=== PATIENT | female | born 1985 | race Caucasian/White ===

== ENCOUNTER 2016-09-29 12:50 | Emergency (ER) | payer OTHER ==
--- NOTE | 2016-09-29 13:19 | ED CLINICAL REPORT ---
Clinical Report - Physicians/Mid Levels [facility] [address] [place] [address] 09/29/2016 12:49 Patient: HEMAL GIBSON Time Seen: 13:22 Sep 29 2016. Arrived- By private vehicle. Historian- patient. HISTORY OF PRESENT ILLNESS Chief Complaint: b/l arm paresthesias. The quality is noted to be "pain" and similar to prior episodes. 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 Additional history - Bilateral arm paresthesias over the last 4-6 months, intermittent symptoms, none now. He denies any injuries. Denies any associated neck pain denies any trauma. Denies any shortness of breath, chest pain. Unclear as to what makes such better/ worse. Has not been seen for this. Denies h/o known disc disease of neck. Patient denies an injury. REVIEW OF SYSTEMS No fever, sore throat, cough, chest pain or difficulty with urination. No hematuria. All systems otherwise negative, except as recorded above. PAST HISTORY Problems: Nephrolithiasis. Renal Colic. Hypertension. Tendonitis. Skin Rash. Dental Caries. Immunizations. LNMP - Last Normal Menstrual Period. Additional Surgeries: Adenoidectomy. Cholecystectomy. Sinus Surgery. Tonsillectomy. Medications: None. Allergies: Amoxicillin. SOCIAL HISTORY Smoker- current status unknown. History of drug use: marijuana. No alcohol use. ADDITIONAL NOTES The nursing notes have been reviewed. PHYSICAL EXAM Vital Signs: 09/29/2016 13:03 BP: 140/57. HR: 87. RR: 18. O2 saturation: 99%. Temp: 98.5 F. Pain level now: 7/10. Appearance: Alert. HEENT: Normal external inspection. Neck: No pain with movement of head/neck. No muscle spasm in the neck. No vertebral tenderness. No soft tissue tenderness or lymphadenopathy. CVS: Normal heart rate and rhythm. Heart sounds normal. Respiratory: No respiratory distress. Breath sounds normal. Skin: Skin warm. Normal skin color. Neuro: No motor deficit. No sensory deficit. PROGRESS AND PROCEDURES Course of Care: Chronic symptoms over the last 6 months, with no acute symptoms in the ER, no acute findings, negative exam, full range of motion of the neck, no associated other systemic symptoms, patient called with primary care provider, consider physical therapy or mri in the future out patient. Patient is stable. The patient's symptoms are unchanged. Patient/family counseled. Disposition: Discharged. CLINICAL IMPRESSION Acute right and left cervical radiculopathy. Paresthesia INSTRUCTIONS ([address] [place] [address] < 1 mi ). Follow-up: Follow up with your doctor in three days. Follow-up with: Davon Haskins MD, [facility], , [facility], [address] [place] [address] Follow up. Call for the next available appointment. (Electronically signed by Mayela Cope P.A.-C 09/29/2016 13:26)
--- NOTE | 2016-09-29 13:19 | ED CLINICAL REPORT ---
Clinical Report - Physicians/Mid Levels [facility] [address] [place] [address] 09/29/2016 12:49 Patient: HEMAL GIBSON Time Seen: 13:22 Sep 29 2016. Arrived- By private vehicle. Historian- patient. HISTORY OF PRESENT ILLNESS Chief Complaint: b/l arm paresthesias. The quality is noted to be "pain" and similar to prior episodes. 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 Additional history - Bilateral arm paresthesias over the last 4-6 months, intermittent symptoms, none now. He denies any injuries. Denies any associated neck pain denies any trauma. Denies any shortness of breath, chest pain. Unclear as to what makes such better/ worse. Has not been seen for this. Denies h/o known disc disease of neck. Patient denies an injury. REVIEW OF SYSTEMS No fever, sore throat, cough, chest pain or difficulty with urination. No hematuria. All systems otherwise negative, except as recorded above. PAST HISTORY Problems: Nephrolithiasis. Renal Colic. Hypertension. Tendonitis. Skin Rash. Dental Caries. Immunizations. LNMP - Last Normal Menstrual Period. Additional Surgeries: Adenoidectomy. Cholecystectomy. Sinus Surgery. Tonsillectomy. Medications: None. Allergies: Amoxicillin. SOCIAL HISTORY Smoker- current status unknown. History of drug use: marijuana. No alcohol use. ADDITIONAL NOTES The nursing notes have been reviewed. PHYSICAL EXAM Vital Signs: 09/29/2016 13:03 BP: 140/57. HR: 87. RR: 18. O2 saturation: 99%. Temp: 98.5 F. Pain level now: 7/10. Appearance: Alert. HEENT: Normal external inspection. Neck: No pain with movement of head/neck. No muscle spasm in the neck. No vertebral tenderness. No soft tissue tenderness or lymphadenopathy. CVS: Normal heart rate and rhythm. Heart sounds normal. Respiratory: No respiratory distress. Breath sounds normal. Skin: Skin warm. Normal skin color. Neuro: No motor deficit. No sensory deficit. PROGRESS AND PROCEDURES Course of Care: Chronic symptoms over the last 6 months, with no acute symptoms in the ER, no acute findings, negative exam, full range of motion of the neck, no associated other systemic symptoms, patient called with primary care provider, consider physical therapy or mri in the future out patient. Patient is stable. The patient's symptoms are unchanged. Patient/family counseled. Disposition: Discharged. CLINICAL IMPRESSION Acute right and left cervical radiculopathy. Paresthesia INSTRUCTIONS ([address] [place] [address] < 1 mi ). Follow-up: Follow up with your doctor in three days. Follow-up with: Davon Haskins MD, [facility], , [facility], [address] [place] [address] Follow up. Call for the next available appointment. (Electronically signed by Mayela Cope P.A.-C 09/29/2016 13:26)
--- NOTE | 2016-09-29 13:19 | ED NURSING NOTES ---
Clinical Report - Nurses [facility] [place] [address] 09/29/2016 12:49 Patient: HEMAL GIBSON TRIAGE Triage time 13:03. Acuity: LEVEL 4. Chief Complaint: RIGHT UPPER EXTREMITY NUMBNESS. LEFT UPPER EXTREMITY NUMBNESS. Alert. No acute distress. HAILEY COMA SCORE: [place] Coma Scale: 15- eyes open spontaneously (4); best verbal response- oriented x 4 (5); best motor response- obeys commands (6). --13:09 Amaya Ortez R.N. 13:03 09/29/16. BP: 140/57. HR: 87. RR: 18. O2 saturation: 99%. Temp: 98.5 F (oral). Pain level now: 03/15. --13:09 Amaya Ortez R.N. Weight: 117.9 kg stated. Height/Length: 66 inches Per Patient. BMI: 42. --13:05 Amaya Ortez R.N. Medications None. --13:04 Amaya Ortez R.N. Medication/allergy information source: the patient. --13:09 Amaya Ortez R.N. Allergies Amoxicillin. --13:04 Amaya Ortez R.N. History Arrived by private vehicle. Historian: patient. Unaccompanied. Primary physician (none). No injury occurred. This occurred (about 6 months). ( intermittent). PAST MEDICAL HX: Last normal menstrual period- has IUD. SOCIAL HX: Heavy tobacco smoker- 1 pack per day. History of drug use: marijuana. No alcohol use. FALL RISK ASSESSMENT: Fall risk assessment completed. No fall risk identified. FUNCTIONAL ASSESSMENT: Functional assessment: no impairments noted. LEARNING NEEDS ASSESSMENT: The learning needs assessment revealed no barriers. --13:09 Amaya Ortez R.N. PROBLEMS: Nephrolithiasis. Renal Colic. Hypertension. Tendonitis. Skin Rash. Dental Caries. Immunizations. LNMP - Last Normal Menstrual Period. --13:05 Amaya Ortez R.N. ADDITIONAL SURGERIES: Adenoidectomy. Cholecystectomy. Sinus Surgery. Tonsillectomy. --13:05 Amaya Ortez R.N. Assessment GENERAL / NEURO / PSYCH: Alert. Oriented X 4. Appears in no acute distress. Patient appears calm and cooperative. RESPIRATORY: Respirations not labored. SKIN: Skin is warm and dry. --13:09 Amaya Ortez R.N. Interventions ID and allergy band on patient. To treatment room. --13:09 Amaya Ortez R.N. PHYSICAL ASSESSMENT 13:15 09/29/16. Ambulatory to room. GENERAL / NEURO / PSYCH: Oriented X 4. Alert. Appears in no acute distress. SKIN: Skin is warm and dry. --13:15 Amaya Ortez R.N. DISPOSITION / DISCHARGE 13:42 09/29/16. Condition at departure: improved. The goals identified in the patient's plan of care were met. No learning barriers present. Discharge instructions provided and reviewed with the patient. Reviewed warnings. Reviewed medication(s). Treatments reviewed. Patient verbalized understanding. Written instructions provided in Italian. The patient was discharged by the physician behavioral modification assistant. She was discharged home and accompanied by family. She left the Emergency Department ambulatory and via private vehicle. Family member driving. FALL RISK ASSESSMENT: Fall risk assessment completed. No fall risk identified. --13:42 Chuy Hooker R.N. 13:42 09/29/16. BP: 126/70. HR: 80. RR: 14. O2 saturation: 99% on room air. --13:42 Chuy Hooker R.N. 13:42 09/29/16. Departure time: 13:42. --13:42 Chuy Hooker R.N. Locked/Released at 09/29/2016 15:46 by Chuy Hooker R.N.
--- NOTE | 2016-09-29 13:19 | ED NURSING NOTES ---
Clinical Report - Nurses [facility] [place] [address] 09/29/2016 12:49 Patient: HEMAL GIBSON TRIAGE Triage time 13:03. Acuity: LEVEL 4. Chief Complaint: RIGHT UPPER EXTREMITY NUMBNESS. LEFT UPPER EXTREMITY NUMBNESS. Alert. No acute distress. HAILEY COMA SCORE: [place] Coma Scale: 15- eyes open spontaneously (4); best verbal response- oriented x 4 (5); best motor response- obeys commands (6). --13:09 Amaya Ortez R.N. 13:03 09/29/16. BP: 140/57. HR: 87. RR: 18. O2 saturation: 99%. Temp: 98.5 F (oral). Pain level now: 03/15. --13:09 Amaya Ortez R.N. Weight: 117.9 kg stated. Height/Length: 66 inches Per Patient. BMI: 42. --13:05 Amaya Ortez R.N. Medications None. --13:04 Amaya Ortez R.N. Medication/allergy information source: the patient. --13:09 Amaya Ortez R.N. Allergies Amoxicillin. --13:04 Amaya Ortez R.N. History Arrived by private vehicle. Historian: patient. Unaccompanied. Primary physician (none). No injury occurred. This occurred (about 6 months). ( intermittent). PAST MEDICAL HX: Last normal menstrual period- has IUD. SOCIAL HX: Heavy tobacco smoker- 1 pack per day. History of drug use: marijuana. No alcohol use. FALL RISK ASSESSMENT: Fall risk assessment completed. No fall risk identified. FUNCTIONAL ASSESSMENT: Functional assessment: no impairments noted. LEARNING NEEDS ASSESSMENT: The learning needs assessment revealed no barriers. --13:09 Amaya Ortez R.N. PROBLEMS: Nephrolithiasis. Renal Colic. Hypertension. Tendonitis. Skin Rash. Dental Caries. Immunizations. LNMP - Last Normal Menstrual Period. --13:05 Amaya Ortez R.N. ADDITIONAL SURGERIES: Adenoidectomy. Cholecystectomy. Sinus Surgery. Tonsillectomy. --13:05 Amaya Ortez R.N. Assessment GENERAL / NEURO / PSYCH: Alert. Oriented X 4. Appears in no acute distress. Patient appears calm and cooperative. RESPIRATORY: Respirations not labored. SKIN: Skin is warm and dry. --13:09 Amaya Ortez R.N. Interventions ID and allergy band on patient. To treatment room. --13:09 Amaya Ortez R.N. PHYSICAL ASSESSMENT 13:15 09/29/16. Ambulatory to room. GENERAL / NEURO / PSYCH: Oriented X 4. Alert. Appears in no acute distress. SKIN: Skin is warm and dry. --13:15 Amaya Ortez R.N. DISPOSITION / DISCHARGE 13:42 09/29/16. Condition at departure: improved. The goals identified in the patient's plan of care were met. No learning barriers present. Discharge instructions provided and reviewed with the patient. Reviewed warnings. Reviewed medication(s). Treatments reviewed. Patient verbalized understanding. Written instructions provided in Estonian. The patient was discharged by the physician delinquent tax collection assistant. She was discharged home and accompanied by family. She left the Emergency Department ambulatory and via private vehicle. Family member driving. FALL RISK ASSESSMENT: Fall risk assessment completed. No fall risk identified. --13:42 Chuy Hooker R.N. 13:42 09/29/16. BP: 126/70. HR: 80. RR: 14. O2 saturation: 99% on room air. --13:42 Chuy Hooker R.N. 13:42 09/29/16. Departure time: 13:42. --13:42 Chuy Hooker R.N. Locked/Released at 09/29/2016 15:46 by Chuy Hooker R.N.
--- NOTE | 2016-09-29 15:46 | ED DISCHARGE INSTRUCTIONS ---
Patient: HEMAL GIBSON General Instructions [facility] VisitID: [id number] [address] [place] [address] 31y, F Registration Date/Time: 09/29/2016 Acute right and left cervical radiculopathy. Paresthesia INSTRUCTIONS ([address] [place] [address] < 1 mi ). Follow-up: Follow up with your doctor in three days. Follow-up with: Davon Haskins MD, [facility], , [facility], [address] [place] [address] Follow up. Call for the next available appointment. ADDITIONAL INFORMATION Pinched Nerve, Neck [Cervical Radiculopathy] A pinched nerve in the neck (also called "Cervical Radiculopathy") is caused by irritation or pressure on the nerve that goes from the spinal cord to the arm. This may be caused by a bulging spinal disk (a "spinal disk" is the cushion between each spinal bone) or narrowing of the spinal joint due to arthritis. This can cause numbness, tingling, deep aching or electrical shooting pain from the side of the neck all the way down to the fingers on one side. A pinched nerve may begin after a sudden turning/bending force (such as in a car accident) or after a simple awkward movement. In either case, muscle spasm is commonly present and contributes to the pain. Home Care: 1) Rest and relax the muscles. Use a comfortable pillow that supports the head and keeps the spine in a neutral position. The position of the head should not be tilted forward or backward. A rolled up towel may help for a custom fit. 2) Some persons find relief with heat (hot shower, hot bath or heating pad) and massage, while others prefer cold packs (crushed or cubed ice in a plastic bag, wrapped in a towel) . Try both and use the method that feels best for 20 minutes several times a day. 3) You may use acetaminophen (Tylenol) or ibuprofen (Motrin, Advil) to control pain, unless another medicine was prescribed. [ NOTE : If you have chronic liver or kidney disease or ever had a stomach ulcer or GI bleeding, talk with your doctor before using these medicines.] Follow Up with your physician or this facility if your symptoms do not show signs of improvement after one week. Further testing may be needed. [NOTE: If x-rays were taken, they will be reviewed by a radiologist. You will be notified of any new findings that may affect your care.] Get Prompt Medical Attention if any of the following occur: -- Pain becomes worse and not controlled by prescribed pain medicine -- Weakness in the arm -- Increasing numbness in the arm -- Trouble breathing or swallowing Paraesthesias Paraesthesia refers to a burning or prickling sensation that is sometimes felt in the hands, arms, legs or feet. It can also occur in other parts of the body. It can also feel like tingling or numbness, skin crawling or itching.The sensation is usually painless. Most people have experienced pins and needles. This feeling happens when legs have been crossed for too long and pressure is placed on a nerve. This is a temporary paraesthesia. It quickly goes away once the pressure is relieved. There are many possible causes for chronic paraesthesias. These include such disorders as stroke, herniated disk (pressing on a nerve), trapped nerve in the shoulder, elbow or wrist (such as carpal tunnel syndrome), vitamin deficiencies or even certain medicines. Laboratory tests are needed to make an accurate diagnosis. These tests may include blood tests, X-ray, CT (computerized tomography) scan or a muscle test (electromyography).Depending on the cause, treatment may include physical therapy. Home Care: Do not make any changes to your medicines without advice from your doctor. If vitamins have been prescribed, remember to take them daily at the recommended dose. Because of a decrease in feeling, a numb hand or foot may be more prone to injury. Take care to protect these areas from cuts, bumps, bruises, spicer or other injury. Keep your nails trimmed and wash your hands and feet often. Wear shoes that fit well to avoid pressure points, blisters and ulcers. Look at your hands and feet carefully (including the soles of your feet and between your toes) at least once a week and notify your doctor of any open wounds or signs of infection. Follow Up with your doctor or as advised by our staff. You may need further testing to determine the exact cause of your paraesthesia. [NOTE: If blood tests, X-ray, CT scan or electromyography were done, specialists will review them. You will be notified of any new findings that may affect your care.] Get Prompt Medical Attention if any of the following occur: Numbness or weakness of the face, one arm or one leg Slurred speech, confusion, trouble speaking, walking or seeing Severe headache, fainting spell, dizziness or seizure Chest, arm, neck or upper back pain Loss of bladder or bowel control Open wound with redness, swelling or pus You have been given the following additional information: Radiculopathy, Cervical Paraesthesias (Electronically signed by Mayela Cope P.A.-C 09/29/2016 13:26)
--- NOTE | 2016-09-29 15:46 | ED DISCHARGE INSTRUCTIONS ---
Patient: HEMAL GIBSON General Instructions [facility] VisitID: [id number] [address] [place] [place] [address] 31y, F Registration Date/Time: 09/29/2016 Acute right and left cervical radiculopathy. Paresthesia INSTRUCTIONS ([address] [place] [address] < 1 mi ). Follow-up: Follow up with your doctor in three days. Follow-up with: Davon Haskins MD, [facility], , [facility], [address] [place] [address] Follow up. Call for the next available appointment. ADDITIONAL INFORMATION Pinched Nerve, Neck [Cervical Radiculopathy] A pinched nerve in the neck (also called "Cervical Radiculopathy") is caused by irritation or pressure on the nerve that goes from the spinal cord to the arm. This may be caused by a bulging spinal disk (a "spinal disk" is the cushion between each spinal bone) or narrowing of the spinal joint due to arthritis. This can cause numbness, tingling, deep aching or electrical shooting pain from the side of the neck all the way down to the fingers on one side. A pinched nerve may begin after a sudden turning/bending force (such as in a car accident) or after a simple awkward movement. In either case, muscle spasm is commonly present and contributes to the pain. Home Care: 1) Rest and relax the muscles. Use a comfortable pillow that supports the head and keeps the spine in a neutral position. The position of the head should not be tilted forward or backward. A rolled up towel may help for a custom fit. 2) Some persons find relief with heat (hot shower, hot bath or heating pad) and massage, while others prefer cold packs (crushed or cubed ice in a plastic bag, wrapped in a towel) . Try both and use the method that feels best for 20 minutes several times a day. 3) You may use acetaminophen (Tylenol) or ibuprofen (Motrin, Advil) to control pain, unless another medicine was prescribed. [ NOTE : If you have chronic liver or kidney disease or ever had a stomach ulcer or GI bleeding, talk with your doctor before using these medicines.] Follow Up with your physician or this facility if your symptoms do not show signs of improvement after one week. Further testing may be needed. [NOTE: If x-rays were taken, they will be reviewed by a radiologist. You will be notified of any new findings that may affect your care.] Get Prompt Medical Attention if any of the following occur: -- Pain becomes worse and not controlled by prescribed pain medicine -- Weakness in the arm -- Increasing numbness in the arm -- Trouble breathing or swallowing Paraesthesias Paraesthesia refers to a burning or prickling sensation that is sometimes felt in the hands, arms, legs or feet. It can also occur in other parts of the body. It can also feel like tingling or numbness, skin crawling or itching.The sensation is usually painless. Most people have experienced pins and needles. This feeling happens when legs have been crossed for too long and pressure is placed on a nerve. This is a temporary paraesthesia. It quickly goes away once the pressure is relieved. There are many possible causes for chronic paraesthesias. These include such disorders as stroke, herniated disk (pressing on a nerve), trapped nerve in the shoulder, elbow or wrist (such as carpal tunnel syndrome), vitamin deficiencies or even certain medicines. Laboratory tests are needed to make an accurate diagnosis. These tests may include blood tests, X-ray, CT (computerized tomography) scan or a muscle test (electromyography).Depending on the cause, treatment may include physical therapy. Home Care: Do not make any changes to your medicines without advice from your doctor. If vitamins have been prescribed, remember to take them daily at the recommended dose. Because of a decrease in feeling, a numb hand or foot may be more prone to injury. Take care to protect these areas from cuts, bumps, bruises, spicer or other injury. Keep your nails trimmed and wash your hands and feet often. Wear shoes that fit well to avoid pressure points, blisters and ulcers. Look at your hands and feet carefully (including the soles of your feet and between your toes) at least once a week and notify your doctor of any open wounds or signs of infection. Follow Up with your doctor or as advised by our staff. You may need further testing to determine the exact cause of your paraesthesia. [NOTE: If blood tests, X-ray, CT scan or electromyography were done, specialists will review them. You will be notified of any new findings that may affect your care.] Get Prompt Medical Attention if any of the following occur: Numbness or weakness of the face, one arm or one leg Slurred speech, confusion, trouble speaking, walking or seeing Severe headache, fainting spell, dizziness or seizure Chest, arm, neck or upper back pain Loss of bladder or bowel control Open wound with redness, swelling or pus You have been given the following additional information: Radiculopathy, Cervical Paraesthesias (Electronically signed by Mayela Cope P.A.-C 09/29/2016 13:26)
--- NOTE | 2016-09-29 15:47 | ED MAR SUMMARY ---
..... Medication Administration Record [facility] [address] [place] [id number] Patient: HEMAL GIBSON Elif Visit ID: [id number] 31y, F Weight: 117.9 kg Height/Length: 66 in BMI: 42 ALLERGIES: Amoxicillin
--- NOTE | 2016-09-29 15:47 | ED MED RECONCILIATION SUMMARY ---
Patient: HEMAL GIBSON Medication Reconciliation Report [facility] VisitID: [id number] [address] [place] [place] [address] 31y, F Registration Date/Time: 09/29/2016 Weight: 117.9 kg Height/Length: 66 in. BMI: 42.0 ALLERGIES: Amoxicillin The patient's Home Medications are listed below: NONE. The source(s) of the original Home Medication information: patient The following Medications were given to the patient in the Emergency Department: None. The following Medications were prescribed to the patient: None.
--- NOTE | 2016-09-29 15:47 | ED MAR SUMMARY ---
..... Medication Administration Record [facility] [address] [place] [id number] Patient: HEMAL GIBSON Elif Visit ID: [id number] 31y, F Weight: 117.9 kg Height/Length: 66 in BMI: 42 ALLERGIES: Amoxicillin
--- NOTE | 2016-09-29 15:47 | ED MED RECONCILIATION SUMMARY ---
Patient: HEMAL GIBSON Medication Reconciliation Report [facility] VisitID: [id number] [address] [place] [address] 31y, F Registration Date/Time: 09/29/2016 Weight: 117.9 kg Height/Length: 66 in. BMI: 42.0 ALLERGIES: Amoxicillin The patient's Home Medications are listed below: NONE. The source(s) of the original Home Medication information: patient The following Medications were given to the patient in the Emergency Department: None. The following Medications were prescribed to the patient: None.
== END 2016-09-29 13:42 | disposition home or self-care (01) ==
LOC: ED SRH 12:50
DX: M54.12 Radiculopathy, cervical region (principal); R20.9 Unspecified disturbances of skin sensation; I10 Essential (primary) hypertension; F17.200 Nicotine dependence, unspecified, uncomplicated; Z88.0 Allergy status to penicillin

== ENCOUNTER 2016-10-19 03:10 | Emergency (ER) | payer OTHER ==
--- NOTE | 2016-10-19 04:15 | ED ORDER SUMMARY ---
..... Patient: HEMAL GIBSON OrderSheet [facility] VisitID: [id number] [address] [place] [address] 31y, F Registration Date/Time: 10/19/2016 ORDER SHEET Weight: 99.7 kg (stated) Allergies: Amoxicillin GENERAL ORDERS: Sinuses less than 3V (Briones. ) Urgent (03:42 10/19/2016 Salome CORNEJO) (4:00 RFay) MEDICATION ORDERS: IV FLUIDS: ORDER SHEET NOTES: [Electronically signed by Korey Ledbetter MD (19:44 10/20/2016)] [Electronically signed by Sarah Carpenter (20:57 10/21/2016)] [Electronically locked/signed by Sarah Carpenter (20:57 10/21/2016)]
--- NOTE | 2016-10-19 04:15 | ED CLINICAL REPORT ---
Clinical Report - Physicians/Mid Levels [facility] [address] [place] [address] 10/19/2016 3:11 Patient: HEMAL GIBSON Time Seen: 03:32 Oct 19 2016. Arrived- By private vehicle. Historian- patient. CPT: ER phys charges level 3 (#[id number]). HISTORY OF PRESENT ILLNESS Chief Complaint: NECK PAIN LOPEZ also for 2 days. Modifying factors- worsened by rotation of the head. It is described as being moderate in degree and in the area of the cervical spine and right side of the cervical spine. The quality is noted to be sharp, aching, "pain" and similar to prior episodes. 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 ( Pt came in with a headache and neck pain. Neck pain is on the right side behind the ear. Pt took headache meds with no relieve. Pt has pain on lateral movement to the left of the neck. Pt denies any vision changes. Headache is a dull ache.). No history of recent trauma. and it is still present. No bladder dysfunction, bowel dysfunction, sensory loss or motor loss. Additional history - LOPEZ present for 2 days as low grade but constant. Not the worst LOPEZ she has ever had. Patient denies an injury. No other injury. Similar symptoms previously: Many times. Recent medical care: Not recently seen/assessed. REVIEW OF SYSTEMS No fever, chills, sore throat, cough or difficulty breathing. No chest pain, skin rash, abdominal pain, nausea or vomiting. No diarrhea, black stools, difficulty with urination, urinary frequency or hematuria. Recent cold for a week and now sinus congestion. Pt has hx of sinusitis. Pt also says she has been referred to neurology to evaluate the cervical radiculopathy she has had for 6 months. All systems otherwise negative, except as recorded above. PAST HISTORY Paresthesia. Cervical Radiculopathy. Nephrolithiasis. Renal Colic. Hypertension. Tendonitis. Skin Rash. Dental Caries. Medications: None. Allergies: Amoxicillin. SOCIAL HISTORY Heavy tobacco smoker (cigarette)- less than 1 pack per day. History of occasional drug use: marijuana. No alcohol use. ADDITIONAL NOTES The nursing notes have been reviewed. PHYSICAL EXAM Vital Signs: 10/19/2016 03:14 BP: 139/84. HR: 92. RR: 18. O2 saturation: 99%. Temp: 98.4 F. Appearance: Alert. No acute distress. HEENT: Normal external inspection. ENT: Pharynx normal. (right temporal , scalp tender to palpation. Right maxillary and frontal sinus tender to percussion.). Neck: Moderate soft tissue tenderness in the right lower neck area. CVS: Normal heart rate and rhythm. Heart sounds normal. Pulses normal. Respiratory: No respiratory distress. Breath sounds normal. Abdomen: Soft and nontender. Back: Normal inspection. No tenderness. Painless ROM. Skin: Skin warm. Normal skin color. No rash. Extremities: Extremities exhibit normal ROM. Extremities nontender. Neuro: Oriented X 3. Mood/affect normal. No motor deficit. No sensory deficit. Reflexes normal. LABS, X-RAYS, AND EKG Note - Tests: (Briones sinus:Bilateral maxillary sinus dz.). PROGRESS AND PROCEDURES Course of Care: Pt pain a combination of musculoskeletal and sinus sources. Pt has musculoskeletal source for LOPEZ and neck pain. Pt has musculoskeletal source for LOPEZ and neck pain. Pt has musculoskeletal source for LOPEZ and neck pain. Patient/family counseled. Disposition: Discharged. Condition: stable. CLINICAL IMPRESSION Episodic, poorly controlled tension headache. Acute and recurrent maxillary sinusitis Chronic neck pain. INSTRUCTIONS Apply moist heat for 15-20 minutes three times a day for five days until better. Limit lifting. No strenuous activity. (decongestant). Prescription Medications: Ibuprofen 600mg tablets: take 1 tablet orally every 8 hours as needed for pain. Dispense thirty (30). No refills. Soma 350 mg: Take 1 orally every 6 hours as needed for muscle spasm. Dispense twenty (20). No refills. Substitution is permissible. Hydrocodone/APAP 5mg/325mg: take 1 to 2 orally every 6 hours as needed for pain. Dispense fifteen (15). No refills. Zithromax 250 mg tablets: take 2 orally today, followed by 1 daily for the next 4 days. No refills. Substitution is permissible. Follow-up: Follow up with your doctor in three days if not better. Call for an appointment. Understanding of the discharge instructions verbalized by patient. (Electronically signed by Korey Ledbetter MD 10/20/2016 19:44)
--- NOTE | 2016-10-19 04:15 | ED NURSING NOTES ---
Clinical Report - Nurses [facility] [address] [place] [address] 10/19/2016 3:11 Patient: HEMAL GIBSON TRIAGE Triage time 03:14. Acuity: LEVEL 4. Chief Complaint: NECK PAIN. --03:19 Dioni Wilkes R.N. 03:14 10/19/16. BP: 139/84. HR: 92. RR: 18. O2 saturation: 99%. Temp: 98.4 F. Pain level now 02/13. --03:19 Dioni Wilkes R.N. Weight: 99.7 kg stated. Height/Length: 66 inches Per Patient. BMI: 35.5. --03:17 Dioni Wilkes R.N. Medications None. --03:17 Dioni Wilkes R.N. Medication/allergy information source: the patient. --03:19 Dioni Wilkes R.N. Allergies Amoxicillin. --03:17 Dioni Wilkes R.N. History Onset. (2 days ago). ( Pt came in with a headache and neck pain. Neck pain is on the right side behind the ear. Pt took headache meds with no relieve. Pt has pain on lateral movement to the left of the neck. Pt denies any vision changes. Headache is a dull ache.). No history of recent trauma. 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 PAST MEDICAL HX: Immunizations: up-to-date. SOCIAL HX: Current every day heavy tobacco smoker (cigarette)- 1 pack per day. History of occasional drug use: marijuana. Recently used drugs days ago. No alcohol use. --03:19 Dioni Wilkes R.N. PROBLEMS: Paresthesia. Cervical Radiculopathy. Nephrolithiasis. Renal Colic. Hypertension. Tendonitis. Skin Rash. Dental Caries. Immunizations. LNMP - Last Normal Menstrual Period. --03:18 Dioni Wilkes R.N. Interventions ID band on patient. To treatment room. --03:19 Dioni Wilkes R.N. PHYSICAL ASSESSMENT ( Pt is having a dull headache 6/10 pain with no vision changes. No other complaints with the headache or neck pain. Pt denies any stiffness of the neck and only limited rom on lateral left movement of the neck.). GENERAL / NEURO / PSYCH: Alert. Oriented X 4. Appears in no acute distress. RESPIRATORY: Respirations not labored. Chest nontender. Breath sounds within normal limits. CVS: Normal heart rate and rhythm. Capillary refill less than 2 seconds. GI / : Abdomen soft and nontender. Bowel sounds within normal limits. EXTREMITIES: Sensation intact in extremities. ROM of extremities within normal limits. BACK: Normal inspection of the neck and back. Limited ROM of the neck in the cervical spine (decreased left lateral bending). No neck or back tenderness. --03:21 Dioni Wilkes R.N. NURSING PROGRESS NOTES Two patient identifiers checked. Call light placed in reach. Side rails up x 1. Bed placed in lowest position. --03:21 Dioni Wilkes R.N. DISPOSITION / DISCHARGE 04:21 10/19/16. Condition at departure: stable. No learning barriers present. Discharge instructions provided and reviewed with the patient. Reviewed medication(s) side effects, precautions, dosing and course information. Prescription(s) given to the patient. Reviewed need for increased fluid intake. Patient verbalized understanding. Written instructions provided in Belgian. ( Follow up with your PCP in three days if symptoms have not improved.). The patient was discharged by the physician. She was discharged home and accompanied by food and beverage intern. She left the Emergency Department ambulatory and via private vehicle. Planning Associate driving. --04:21 Sarah Carpenter 04:20 10/19/16. BP: 136/68. HR: 91. RR: 20. O2 saturation: 98% on room air. Temp: 98.4 F (oral). Pain level now: 02/13. --04:21 Sarah Carpenter. Locked/Released at 10/21/2016 20:57 by Sarah Carpenter,
--- NOTE | 2016-10-19 04:15 | ED ORDER SUMMARY ---
..... Patient: HEMAL GIBSON OrderSheet [facility] VisitID: [id number] [address] [place] [address] 31y, F Registration Date/Time: 10/19/2016 ORDER SHEET Weight: 99.7 kg (stated) Allergies: Amoxicillin GENERAL ORDERS: Sinuses less than 3V (Briones. ) Urgent (03:42 10/19/2016 Salome CORNEJO) (4:00 RFay) MEDICATION ORDERS: IV FLUIDS: ORDER SHEET NOTES: [Electronically signed by Korey Ledbetter MD (19:44 10/20/2016)] [Electronically signed by Sarah Carpenter (20:57 10/21/2016)] [Electronically locked/signed by Sarah Carpenter (20:57 10/21/2016)]
--- NOTE | 2016-10-19 04:15 | ED NURSING NOTES ---
Clinical Report - Nurses [facility] [address] [place] [address] 10/19/2016 3:11 Patient: HEMAL GIBSON TRIAGE Triage time 03:14. Acuity: LEVEL 4. Chief Complaint: NECK PAIN. --03:19 Dioni Wilkes R.N. 03:14 10/19/16. BP: 139/84. HR: 92. RR: 18. O2 saturation: 99%. Temp: 98.4 F. Pain level now 02/13. --03:19 Dioni Wilkes R.N. Weight: 99.7 kg stated. Height/Length: 66 inches Per Patient. BMI: 35.5. --03:17 Dioni Wilkes R.N. Medications None. --03:17 Dioni Wilkes R.N. Medication/allergy information source: the patient. --03:19 Dioni Wilkes R.N. Allergies Amoxicillin. --03:17 Dioni Wilkes R.N. History Onset. (2 days ago). ( Pt came in with a headache and neck pain. Neck pain is on the right side behind the ear. Pt took headache meds with no relieve. Pt has pain on lateral movement to the left of the neck. Pt denies any vision changes. Headache is a dull ache.). No history of recent trauma. 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 PAST MEDICAL HX: Immunizations: up-to-date. SOCIAL HX: Current every day heavy tobacco smoker (cigarette)- 1 pack per day. History of occasional drug use: marijuana. Recently used drugs days ago. No alcohol use. --03:19 Dioni Wilkes R.N. PROBLEMS: Paresthesia. Cervical Radiculopathy. Nephrolithiasis. Renal Colic. Hypertension. Tendonitis. Skin Rash. Dental Caries. Immunizations. LNMP - Last Normal Menstrual Period. --03:18 Dioni Wilkes R.N. Interventions ID band on patient. To treatment room. --03:19 Dioni Wilkes R.N. PHYSICAL ASSESSMENT ( Pt is having a dull headache 6/10 pain with no vision changes. No other complaints with the headache or neck pain. Pt denies any stiffness of the neck and only limited rom on lateral left movement of the neck.). GENERAL / NEURO / PSYCH: Alert. Oriented X 4. Appears in no acute distress. RESPIRATORY: Respirations not labored. Chest nontender. Breath sounds within normal limits. CVS: Normal heart rate and rhythm. Capillary refill less than 2 seconds. GI / : Abdomen soft and nontender. Bowel sounds within normal limits. EXTREMITIES: Sensation intact in extremities. ROM of extremities within normal limits. BACK: Normal inspection of the neck and back. Limited ROM of the neck in the cervical spine (decreased left lateral bending). No neck or back tenderness. --03:21 Dioni Wilkes R.N. NURSING PROGRESS NOTES Two patient identifiers checked. Call light placed in reach. Side rails up x 1. Bed placed in lowest position. --03:21 Dioni Wilkes R.N. DISPOSITION / DISCHARGE 04:21 10/19/16. Condition at departure: stable. No learning barriers present. Discharge instructions provided and reviewed with the patient. Reviewed medication(s) side effects, precautions, dosing and course information. Prescription(s) given to the patient. Reviewed need for increased fluid intake. Patient verbalized understanding. Written instructions provided in Maldivian. ( Follow up with your PCP in three days if symptoms have not improved.). The patient was discharged by the physician. She was discharged home and accompanied by technical services consultant. She left the Emergency Department ambulatory and via private vehicle. Internal Combustion Engine Inspector driving. --04:21 Sarah Carpenter 04:20 10/19/16. BP: 136/68. HR: 91. RR: 20. O2 saturation: 98% on room air. Temp: 98.4 F (oral). Pain level now: 02/13. --04:21 Sarah Carpenter. Locked/Released at 10/21/2016 20:57 by Sarah Carpenter,
--- NOTE | 2016-10-19 04:15 | ED CLINICAL REPORT ---
Clinical Report - Physicians/Mid Levels [facility] [address] [place] [address] 10/19/2016 3:11 Patient: HEMAL GIBSON Time Seen: 03:32 Oct 19 2016. Arrived- By private vehicle. Historian- patient. CPT: ER phys charges level 3 (#[id number]). HISTORY OF PRESENT ILLNESS Chief Complaint: NECK PAIN LOPEZ also for 2 days. Modifying factors- worsened by rotation of the head. It is described as being moderate in degree and in the area of the cervical spine and right side of the cervical spine. The quality is noted to be sharp, aching, "pain" and similar to prior episodes. 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 ( Pt came in with a headache and neck pain. Neck pain is on the right side behind the ear. Pt took headache meds with no relieve. Pt has pain on lateral movement to the left of the neck. Pt denies any vision changes. Headache is a dull ache.). No history of recent trauma. and it is still present. No bladder dysfunction, bowel dysfunction, sensory loss or motor loss. Additional history - LOPEZ present for 2 days as low grade but constant. Not the worst LOPEZ she has ever had. Patient denies an injury. No other injury. Similar symptoms previously: Many times. Recent medical care: Not recently seen/assessed. REVIEW OF SYSTEMS No fever, chills, sore throat, cough or difficulty breathing. No chest pain, skin rash, abdominal pain, nausea or vomiting. No diarrhea, black stools, difficulty with urination, urinary frequency or hematuria. Recent cold for a week and now sinus congestion. Pt has hx of sinusitis. Pt also says she has been referred to neurology to evaluate the cervical radiculopathy she has had for 6 months. All systems otherwise negative, except as recorded above. PAST HISTORY Paresthesia. Cervical Radiculopathy. Nephrolithiasis. Renal Colic. Hypertension. Tendonitis. Skin Rash. Dental Caries. Medications: None. Allergies: Amoxicillin. SOCIAL HISTORY Heavy tobacco smoker (cigarette)- less than 1 pack per day. History of occasional drug use: marijuana. No alcohol use. ADDITIONAL NOTES The nursing notes have been reviewed. PHYSICAL EXAM Vital Signs: 10/19/2016 03:14 BP: 139/84. HR: 92. RR: 18. O2 saturation: 99%. Temp: 98.4 F. Appearance: Alert. No acute distress. HEENT: Normal external inspection. ENT: Pharynx normal. (right temporal , scalp tender to palpation. Right maxillary and frontal sinus tender to percussion.). Neck: Moderate soft tissue tenderness in the right lower neck area. CVS: Normal heart rate and rhythm. Heart sounds normal. Pulses normal. Respiratory: No respiratory distress. Breath sounds normal. Abdomen: Soft and nontender. Back: Normal inspection. No tenderness. Painless ROM. Skin: Skin warm. Normal skin color. No rash. Extremities: Extremities exhibit normal ROM. Extremities nontender. Neuro: Oriented X 3. Mood/affect normal. No motor deficit. No sensory deficit. Reflexes normal. LABS, X-RAYS, AND EKG Note - Tests: (Briones sinus:Bilateral maxillary sinus dz.). PROGRESS AND PROCEDURES Course of Care: Pt pain a combination of musculoskeletal and sinus sources. Pt has musculoskeletal source for LOPEZ and neck pain. Pt has musculoskeletal source for LOPEZ and neck pain. Pt has musculoskeletal source for LOPEZ and neck pain. Patient/family counseled. Disposition: Discharged. Condition: stable. CLINICAL IMPRESSION Episodic, poorly controlled tension headache. Acute and recurrent maxillary sinusitis Chronic neck pain. INSTRUCTIONS Apply moist heat for 15-20 minutes three times a day for five days until better. Limit lifting. No strenuous activity. (decongestant). Prescription Medications: Ibuprofen 600mg tablets: take 1 tablet orally every 8 hours as needed for pain. Dispense thirty (30). No refills. Soma 350 mg: Take 1 orally every 6 hours as needed for muscle spasm. Dispense twenty (20). No refills. Substitution is permissible. Hydrocodone/APAP 5mg/325mg: take 1 to 2 orally every 6 hours as needed for pain. Dispense fifteen (15). No refills. Zithromax 250 mg tablets: take 2 orally today, followed by 1 daily for the next 4 days. No refills. Substitution is permissible. Follow-up: Follow up with your doctor in three days if not better. Call for an appointment. Understanding of the discharge instructions verbalized by patient. (Electronically signed by Korey Ledbetter MD 10/20/2016 19:44)
--- NOTE | 2016-10-19 05:51 | DIAGNOSTIC IMAGING REPORT ---
PROCEDURE: XR SINUSES LESS THAN 3 VIEWS INDICATION: MAXILLARY PRESSURE TECHNIQUE: Water's view COMPARISON: None. FINDINGS: Moderate bilateral maxillary sinus thickening. Frontal sinuses are clear. Bones are unremarkable. IMPRESSION: 1. Bilateral maxillary sinus disease.
--- NOTE | 2016-10-21 20:57 | ED MED RECONCILIATION SUMMARY ---
Patient: HEMAL GIBSON Medication Reconciliation Report [facility] VisitID: [id number] [address] [place] [address] 31y, F Registration Date/Time: 10/19/2016 Weight: 99.7 kg Height/Length: 66 in. BMI: 35.5 ALLERGIES: Amoxicillin The patient's Home Medications are listed below: NONE. The source(s) of the original Home Medication information: patient The following Medications were given to the patient in the Emergency Department: None. The following Medications were prescribed to the patient: Ibuprofen 600mg tablets: take 1 tablet orally every 8 hours as needed for pain. Dispense thirty (30). No refills. -- Korey Ledbetter MD Soma 350 mg: Take 1 orally every 6 hours as needed for muscle spasm. Dispense twenty (20). No refills. Substitution is permissible. -- Korey Ledbetter MD Hydrocodone/APAP 5mg/325mg: take 1 to 2 orally every 6 hours as needed for pain. Dispense fifteen (15). No refills. -- Korey Ledbetter MD Zithromax 250 mg tablets: take 2 orally today, followed by 1 daily for the next 4 days. No refills. Substitution is permissible. -- Korey Ledbetter MD
--- NOTE | 2016-10-21 20:57 | ED MED RECONCILIATION SUMMARY ---
Patient: HEMAL GIBSON Medication Reconciliation Report [facility] VisitID: [id number] [address] [place] [address] 31y, F Registration Date/Time: 10/19/2016 Weight: 99.7 kg Height/Length: 66 in. BMI: 35.5 ALLERGIES: Amoxicillin The patient's Home Medications are listed below: NONE. The source(s) of the original Home Medication information: patient The following Medications were given to the patient in the Emergency Department: None. The following Medications were prescribed to the patient: Ibuprofen 600mg tablets: take 1 tablet orally every 8 hours as needed for pain. Dispense thirty (30). No refills. -- oKrey Ledbetter MD Soma 350 mg: Take 1 orally every 6 hours as needed for muscle spasm. Dispense twenty (20). No refills. Substitution is permissible. -- Korey Ledbetter MD Hydrocodone/APAP 5mg/325mg: take 1 to 2 orally every 6 hours as needed for pain. Dispense fifteen (15). No refills. -- Korey Ledbetter MD Zithromax 250 mg tablets: take 2 orally today, followed by 1 daily for the next 4 days. No refills. Substitution is permissible. -- Korey Ledbetter MD
--- NOTE | 2016-10-21 20:57 | ED MAR SUMMARY ---
..... Medication Administration Record [facility] [address] [place], [place] [id number] Patient: HEMAL GIBSON Elif Visit ID: [id number] 31y, F Weight: 99.7 kg Height/Length: 66 in BMI: 35.5 ALLERGIES: Amoxicillin
--- NOTE | 2016-10-21 20:57 | ED MAR SUMMARY ---
..... Medication Administration Record [address] [place], [place] [id number] Patient: HEMAL GIBSON Elif Visit ID: [id number] 31y, F Weight: 99.7 kg Height/Length: 66 in BMI: 35.5 ALLERGIES: Amoxicillin
--- NOTE | 2016-10-21 20:57 | ED DISCHARGE INSTRUCTIONS ---
Patient: HEMAL GIBSON General Instructions [facility] VisitID: [id number] [place] [address] 31y, F Registration Date/Time: 10/19/2016 Episodic, poorly controlled tension headache. Acute and recurrent maxillary sinusitis Chronic neck pain. INSTRUCTIONS Apply moist heat for 15-20 minutes three times a day for five days until better. Limit lifting. No strenuous activity. (decongestant). Prescription Medications: Ibuprofen 600mg tablets: take 1 tablet orally every 8 hours as needed for pain. Dispense thirty (30). No refills. Soma 350 mg: Take 1 orally every 6 hours as needed for muscle spasm. Dispense twenty (20). No refills. Substitution is permissible. Hydrocodone/APAP 5mg/325mg: take 1 to 2 orally every 6 hours as needed for pain. Dispense fifteen (15). No refills. Zithromax 250 mg tablets: take 2 orally today, followed by 1 daily for the next 4 days. No refills. Substitution is permissible. Follow-up: Follow up with your doctor in three days if not better. Call for an appointment. Understanding of the discharge instructions verbalized by patient. ADDITIONAL INFORMATION Sinusitis [Abx Tx] The sinuses are air-filled spaces within the bones of the face. They connect to the inside of the nose. Sinusitis is an inflammation of the tissue lining the sinus cavity. Sinus inflammation can occur during a cold or hay-fever (allergies to pollens and other particles in the air) and cause symptoms of sinus congestion and fullness. A sinus infection causes fever, headache and facial pain. There is usually green or yellow drainage from the nose or into the back of the throat (post-nasal drip). Antibiotics are prescribed to treat this condition. Home Care: Drink plenty of water, hot tea, and other liquids to stay well hydrated. This thins the mucus and promotes sinus drainage. Apply heat to the painful areas of the face. Use a towel soaked in hot water. Or, human resources benefits coordinator the shower and direct the hot spray onto your face. This is a good way to inhale warm water vapor and get heat on your face at the same time. (Cover your mouth and nose with your hands so you can still breathe as you do this.) Use a vaporizer with products such as Vicks VapoRub (contains menthol) at night. Suck on peppermint, menthol or eucalyptus hard candies during the day. An expectorant containing guaifenesin (such as Robitussin), helps to thin the mucus and promote drainage from the sinuses. [id number] decongestants may be used unless a similar medicine was prescribed. Nasal sprays work the fastest. Use one that contains phenylephrine (Mayur-synephrine, Sinex and others) or oxymetazoline (Afrin). First blow the nose gently to remove mucus, then apply the drops. Do not use these medicines more often than directed on the label or for more than three days or symptoms may worsen. You may also use tablets containing pseudoephedrine (Sudafed). Many sinus remedies combine ingredients, which may increase side effects. Read the labels or ask the pharmacist for help. NOTE: Persons with high blood pressure should not use decongestants. They can raise blood pressure. Antihistamines are useful if allergies are a cause of your sinusitis. The mildest one is chlorpheniramine (available without a prescription). The dose for adults is 8-12mg three times a day. [NOTE: Do not use chlorpheniramine if you have glaucoma or if you are a man with trouble urinating due to an enlarged prostate.] Claritin (loratidine) is an antihistamine that causes less drowsiness and is a good alternative for daytime use. Do not use nasal rinses or irrigation during an acute sinus infection, unless advised by your doctor. Rinsing may spread the infection to other sinuses. You may use acetaminophen (Tylenol) or ibuprofen (Motrin, Advil) to control pain, unless another pain medicine was prescribed. [ NOTE: If you have chronic liver or kidney disease or ever had a stomach ulcer, talk with your doctor before using these medicines.] (Aspirin should never be used in anyone under 18 years of age who is ill with a fever. It may cause severe liver damage.) Finish the full course, even if you are feeling better after a few days. Follow Up with your doctor or this facility in one week or as instructed by our staff if not improving. Get Prompt Medical Attention if any of the following occur: Facial pain or headache becomes more severe Stiff neck Unusual drowsiness or confusion, or not acting like your normal self Swelling of the forehead or eyelids Vision problems including blurred or double vision Fever of 100.4F (38C) or higher, or as directed by your healthcare provider Seizure Tension Headache Muscle Tension Headache (also called "stress headache") is a very common cause of head pain. Under stress, some people tense the muscles of their shoulder, neck and scalp without knowing it. If this lasts long enough, a headache can occur. These headaches can be very painful and last for hours or even days. Home Care: If you were given pain medicine for this headache, do not drive yourself home. Arrange for a ride, instead. When you get home, try to sleep. You should feel much better when you wake up. Heat to the back of your neck may relieve neck spasm. Drink only clear liquids or eat a very light diet to avoid nausea/vomiting until symptoms improve. Preventing Future Headaches Identify the sources of stress in your life. These may not be obvious! Learn new ways to handle your stress, such as regular exercise, biofeedback, self-hypnosis and meditation. For more information about this, consult your doctor or go to a local bookstore and review the many books and tapes on this subject. At the first sign of a tension headache, take time out if possible. Remove yourself from the stressful situation, find a quiet comfortable place to sit or lie down and let yourself relax. Heat and deep massage of the tight areas in the neck and shoulders may help reduce muscle spasm. Medicine, such as ibuprofen (Advil or Motrin) or a prescribed muscle relaxant may be helpful at this point. Follow Up with your doctor if the headache is not better within the next 24 hours. If you have frequent headaches you should discuss a treatment plan with your primary care doctor. Ask if you can have medicine to take at home the next time you get a bad headache. This may avoid the need for a visit to the emergency department in the future. Poorly controlled chronic headaches may require a referral to a neurologist (headache specialist). Get Prompt Medical Attention if any of the following occur: Worsening of your head pain or no improvement within 24 hours Repeated vomiting (unable to keep liquids down) Fever of 100.4F (38C) or higher, or as directed by your healthcare provider Stiff neck Extreme drowsiness, confusion or fainting Dizziness, vertigo (dizziness with spinning sensation) Weakness of an arm or leg or one side of the face Difficulty with speech or vision You have been given the following additional information: Sinusitis, Abx Tx Headache, Tension Limit lifting. No strenuous activity. (Electronically signed by Korey Ledbetter MD 10/20/2016 19:44)
== END 2016-10-19 04:20 | disposition home or self-care (01) ==
LOC: ED SRH 03:10
DX: G44.211 Episodic tension-type headache, intractable (principal); J01.01 Acute recurrent maxillary sinusitis; M54.2 Cervicalgia; G89.29 Other chronic pain; I10 Essential (primary) hypertension; F17.210 Nicotine dependence, cigarettes, uncomplicated; Z88.0 Allergy status to penicillin